=== PATIENT | male | born 1985 | race Caucasian/White ===

== ENCOUNTER 2019-10-09 20:27 | Emergency (ER) | payer MEDICAID ==
[~2019-10-09] VITALS: Ht 172.7 cm; Wt 80.3 kg
[2019-10-09 20:33] VITALS: BP 150/95
--- NOTE | 2019-10-09 20:37 | NUR ---
PT AMBULATED TO BED #7
--- NOTE | 2019-10-09 21:02 | NUR ---
34 Y/O MALE C/O LEFT SIDE PAIN X 1HR S/P FALLING OFF THE ROOF. PT STATES, " I FELL 10 FT OFF THE ROOF BUT WAS HOLDING THE NAIL GUN CORD AND THE END SIDE OF THE NAILGUN ENDED UP PUNTURING MY LEFT SIDE." OBVIOUS LAC PRESENT ON THE ANTERIOR LEFT SIDE OF ABD/LOWER CHEST. VSS. A&OX4. STEADY GAIT. DENIES TAKING ANY PAIN MEDS. LEFT SIDE OF ABD AND LOWER CHEST SHOWS A 3CM LAC WITH DRY BLOOD. NO ACTIVE BLEED OR BURSING PRESENT AROUND THE ABD OR CHEST. NO NAIL OR ANY OBJECT PRESENT INSIDE THE WOUND. LUNG SOUNDS CLEAR ALL THROUGHOUT. NO SOB, NO RESP DISTRESS NOTED. PT DENIES ANY HEAD TRUAMA OR INJURY TO THE END. NKA. NO PMH.
[2019-10-09] MEDS ORDERED: NACL 0.9% 1,000 ML IV SCH (21:16)
--- NOTE | 2019-10-09 21:25 | NUR ---
ABHI GARCIA AT BEDSIDE TO [facility] PT.
[2019-10-09] MEDS ORDERED: MORPHINE SULFATE 4 MG/ML SYR IVP ONE ×2 (21:30→22:35)
--- NOTE | 2019-10-09 21:35 | NUR ---
CONSENT FORM SIGNED BY PT FOR CT WITH CONTRAST.
[2019-10-09 21:44] LABS: BASOPHILS % (AUTO) 0.3 % (0.0-2.0); EOSINOPHILS # (AUTO) 0.1 K/uL (0-0.4); EOSINOPHILS % (AUTO) 1.9 % (0.0-4.0); HEMATOCRIT 45.6 % (36-52); HEMOGLOBIN 15.2 g/dL (12.0-18.0); LYMPHOCYTES # (AUTO) 1.7 K/uL (2.0-11.5); LYMPHOCYTES % (AUTO) 25.4 % (20.5-51.1); MEAN CORPUSCULAR HEMOGLOBIN 29 pg (27-31); MEAN CORPUSCULAR HGB CONC 33 g/dL (33-37); MEAN CORPUSCULAR VOLUME 87.8 fL (80-94); MONOCYTES # (AUTO) 0.4 K/uL (0.8-1.0); MONOCYTES % (AUTO) 6.3 % (1.7-9.3); NEUTROPHILS # (AUTO) 4.3 K/uL (1.8-7.7); NEUTROPHILS % (AUTO) 66.1 % (42.2-75.2); PLATELET COUNT (AUTO) 248 K/uL (140-450); RED CELL DISTRIBUTION WIDTH 13.8 % (11.6-13.7); WHITE BLOOD COUNT (AUTO) 6.5 K/uL (4.8-10.8)
[2019-10-09] MEDS ORDERED: LIDOCAINE/EPI 1% 1:100000 20 ML VIAL INJ ONE (21:45)
--- NOTE | 2019-10-09 22:11 | NUR ---
PT TRANSFER TO CT VIA [facility].
[2019-10-09 22:15] LABS: ALBUMIN 4.3 g/dL (3.4-5.0); ANION GAP 13.4 (8-16); CARBON DIOXIDE 26.6 mmol/L (21-32); CREATININE 1.1 mg/dL (0.6-1.3); TOTAL BILIRUBIN 0.4 mg/dL (0.0-1.0)
--- NOTE | 2019-10-09 22:40 | NUR ---
PT RETURNED BACK FROM CT VIA [facility].
--- NOTE | 2019-10-09 22:44 | NUR ---
PT USED URINAL AT BEDSIDE. URINE IS CLEAR AND YELLOW IN COLOR.
[2019-10-10] MEDS ORDERED: MORPHINE SULFATE 4 MG/ML SYR IVP ONE (00:45)
--- NOTE | 2019-10-10 01:16 | NUR ---
ABHI QUIÑONES AT BEDSIDE PERFORMING LAC REPAIR WITH SUTURES.
[2019-10-10 02:00] VITALS: BP 122/79
--- NOTE | 2019-10-10 02:00 | NUR ---
Patient discharged with v/s stable. Written and verbal after care instructions given and explained. Patient alert, oriented and verbalized understanding of instructions. Wheel Chair Assisted with to car. All questions addressed prior to discharge. ID band removed. Patient advised to follow up with PMD. Rx of NORCO, AND MOTRIN given. Patient educated on indication of medication including possible reaction and side effects. Opportunity to ask questions provided and answered.
== END 2019-10-10 02:00 | disposition home or self-care (01) ==
LOC: MED 20:27
DX: S22.42XA Multiple fractures of ribs, left side, initial encounter for closed fracture (principal); S31.119A Laceration without foreign body of abdominal wall, unspecified quadrant without penetration into peritoneal cavity, initial encounter; W17.89XA Other fall from one level to another, initial encounter; Y93.89 Activity, other specified; Y92.89 Other specified places as the place of occurrence of the external cause; Y99.8 Other external cause status
CPT/HCPCS: 12002; 36415; 71260; 74177; 80053; 83690; 85025; 90471; 90715; 96374; 96376; 99285; J2001; J2270; J7030; Q9967

== ENCOUNTER 2019-10-15 11:15 | Emergency (ER) | payer MEDICAID ==
[~2019-10-15] VITALS: Ht 167.6 cm; Wt 80.7 kg
[2019-10-15 11:18] VITALS: BP 147/91
--- NOTE | 2019-10-15 11:20 | NUR ---
PT AMBULATED TO ER BED 12
--- NOTE | 2019-10-15 11:33 | NUR ---
DR RESENDEZ AT BEDSIDE
--- NOTE | 2019-10-15 11:35 | NUR ---
SUTURE REMOVAL TO LEFT UPPER ABDOMEN. SEEN HERE 10/09/19 FOR SUTURE PLACEMENT POST FALLING OFF ROOF. STATES PAIN 10/25 NOW BUT IMPROVES WITH IBUPROFEN. DENIES DISCHARGE FROM SITE. Rapp IT Up TECH TRANSLATED DANISH. PT ALERT AND AWAKE, VS STABLE. AMBULATORY WITH STEADY GAIT. MED HX: DENIES
--- NOTE | 2019-10-15 11:46 | NUR ---
APPLIED DRESSING TO LEFT LOWER ABD WITHOUT ANY ISSUES
[2019-10-15 11:57] VITALS: BP 141/87
--- NOTE | 2019-10-15 11:57 | NUR ---
Patient discharged with v/s stable. Written and verbal after care instructions given and explained REGARDING SUTURE REMOVAL. Patient verbalized understanding. Ambulatory with steady gait. All questions addressed prior to discharge. Advised to follow up with PMD. PT INSTRUCTED TO KEEP SITE CLEAN AND DRY. PT GIVEN EXTRA DRESSING FOR TOMORROW PT INSTRUCTED TO APPLY NEOSPORIN IF SITE IS DRY
== END 2019-10-15 11:57 | disposition home or self-care (01) ==
LOC: MED 11:15
DX: S01.91XD Laceration without foreign body of unspecified part of head, subsequent encounter (principal); Z48.02 Encounter for removal of sutures
CPT/HCPCS: 99282

== ENCOUNTER 2019-10-20 11:24 | Emergency (ER) | payer MEDICAID ==
[~2019-10-20] VITALS: Ht 167.6 cm; Wt 78.9 kg
[2019-10-20 11:29] VITALS: BP 123/88
--- NOTE | 2019-10-20 11:43 | NUR ---
34 Y/O MALE PRESENTED INTO ED FOR WOUND CHECK ON LEFT UPPER ABD . PT HAD SUTURES REMOVED X 1 WEEK. PT DENIES PAIN. NO OBSERVED REDNESS OR SWELLING NOTED AROUND REMOVED SUTURE SITE. PT STATES HE TOOK IBUPROFEN THIS MORNING. PT LAYING IN BED AT LOWEST POSITION, HOB ELEVATED , SIDE RAIL X1. PMH: NONE NKA
[2019-10-20] MEDS ORDERED: BACITRACIN OINT 500 UNITS/GM PKT TP ONE (12:00)
--- NOTE | 2019-10-20 12:04 | NUR ---
BACTRIM OINTMENT ADMINISTERED AND BANDAGE APPLIED TO LEFT ABD. Addendum: 10/20/19 at 1301 by RENETTA bacitracin OINTMENT ADMINISTERED AND BANDAGE APPLIED TO LEFT ABD.
[2019-10-20 13:00] VITALS: BP 123/88
--- NOTE | 2019-10-20 13:01 | NUR ---
Patient discharged with v/s stable. Written and verbal after care instructions given and explained. Patient alert, oriented and verbalized understanding of instructions. Ambulatory with steady gait. All questions addressed prior to discharge. ID band removed. Patient advised to follow up with PMD. Rx of bacitracin TO given. Patient educated on indication of medication including possible reaction and side effects. Opportunity to ask questions provided and answered.
== END 2019-10-20 13:01 | disposition home or self-care (01) ==
LOC: MED 11:24
DX: S31.112D Laceration without foreign body of abdominal wall, epigastric region without penetration into peritoneal cavity, subsequent encounter (principal); X58.XXXD Exposure to other specified factors, subsequent encounter
CPT/HCPCS: 99282